=== PATIENT | male | born 1970 | race Hispanic/Latino ===

== ENCOUNTER 2025-04-17 06:23 | Day surgery (SDC) | payer OTHER, SELFPAY ==
[2025-04-10 08:34] VITALS: BMI 30.8
[2025-04-17] VITALS (8 sets, daily range): BP systolic 109–133; BP diastolic 68–85; PULSE 74–84; RESP 14–16; TEMP 36.2–36.8; O2SAT 96–99
[2025-04-17] MEDS: LACTATED RINGERS 1,000 ML 42 ML IV ×2 (07:34→08:54)
--- NOTE | 2025-04-17 07:41 | PM.PREOP ---
Pre-operative Note COVID-19 COVID-19 status: Not tested Interval Note History & Physical reviewed/Exam performed by Physician: Yes Changes to H&P: No ASA Class (for procedural sedation): II
--- NOTE | 2025-04-17 08:12 | SUR.OPER ---
Supine on padded OR bed, head on pillow, arms secured on padded arm boards at <90 degrees abduction, legs uncrossed, safety belt at thigh, tape over blanket over lower legs.
--- NOTE | 2025-04-17 09:19 | P.OP_ITS ---
Operative Date/Time/Diagnoses Date of procedure: 04/17/25 Time of procedure: 09:19 Pre-op diagnosis: Ventral incisional hernia Post-op diagnosis: same Procedure & Clinicians Procedure: Open ventral incisional hernia repair with mesh Same procedure(s) as scheduled: Yes Surgeon: Boy Garza Assisted?: Yes Wallpaper Printer Helper: Jai Fraga Anesthesia Type: General Operative Notes Findings: 4.7 cm defect containing omentum Applied: none Estimated Blood Loss (mL): 8 Procedure in detail: Ancef was administered. The patient was brought to the operating room, placed on the table in the supine position and general endotracheal anesthesia was induced. The abdomen was prepped and draped in the usual fashion. A time-out was performed. A 7 cm incision was made over the hernia superior to the umbilicus. Dissection was carried down to the hernia sac. The hernia sac was freed from the fascial ring and the peritoneal cavity was entered. There was omentum within the hernia sac. There were no obvious intra-abdominal adhesions. The abdominal cavity was not explored. The facial defect was approximately 4.7 cm and roughly circular. The hernia sac was dissected free from the fascial ring. The fascial defect was closed transversely with multiple interrupted 0 Ethibond sutures. The subcutaneous adipose tissue was cleared off of the anterior sheath circumferentially about 2 cm in each direction. A piece of polypropylene mesh was trimmed to fit over the fascial closure and secured with Tisseel. Once the Tisseel was dried the subcutaneous adipose tissue was closed with interrupted 3-0 Vicryl sutures. The skin was closed with multiple interrupted 3-0 Vicryl dermal sutures followed by a running 4 Monocryl subcu ticular closure. Steri-Strips were applied and an abdominal binder was applied. Complications: none Post-operative Condition: stable Disposition: PACU
[2025-04-17] MEDS: ACETAMINOPHEN IV 1,000 MG/100 ML VIAL 400 MG IV (09:28)
--- NOTE | 2025-04-17 14:37 | SUR.PHASEII ---
Discharged patient home via [facility] transport in stable condition. Prescription hand-delivered to patient and placed in his belongings on discharge. Discharge instructions printed out in Maltese and verbalized with use of associate financial analyst via Ipad. VSS at discharge. All belongings returned to patient.
== END 2025-04-17 14:39 | disposition home or self-care (01) ==
LOC: OR 06:24 → AC 06:26
PROVIDERS: Referring Provider Surgery; Visit Provider Surgery
PROC: (CPT 49593; principal; 2025-04-17 07:45)
DX: K43.2 Incisional hernia without obstruction or gangrene (principal); E11.9 Type 2 diabetes mellitus without complications; Z79.84 Long term (current) use of oral hypoglycemic drugs; Z87.891 Personal history of nicotine dependence
CPT/HCPCS: 49593; 82962; C1781; C9250; J0131; J0689; J1100; J1171; J1885; J2250; J2405; J2704; J3010; J7120